=== PATIENT | male | born 1995 | race Asian ===

== ENCOUNTER 2020-06-13 02:39 | Emergency (ER) | payer SELFPAY ==
[~2020-06-13] VITALS: Ht 177.8 cm; Wt 80.5 kg
[2020-06-13 04:20] VITALS: BP 120/80
[2020-06-13] MEDS ORDERED: ACETAMINOPHEN 500 MG TABLET PO ONE (05:15)
== END 2020-06-13 06:12 | disposition home or self-care (01) ==
LOC: EMS 02:40
DX: S09.90XA Unspecified injury of head, initial encounter (principal); M54.2 Cervicalgia; R07.89 Other chest pain; M25.512 Pain in left shoulder; F17.210 Nicotine dependence, cigarettes, uncomplicated; V49.9XXA Car occupant (driver) (passenger) injured in unspecified traffic accident, initial encounter; Y93.89 Activity, other specified; Y92.89 Other specified places as the place of occurrence of the external cause; Y99.8 Other external cause status
CPT/HCPCS: 70450; 71101; 72125